=== PATIENT | female | born 1995 | race Caucasian/White ===

== ENCOUNTER 2018-11-11 12:01 | Inpatient (IN) | payer MEDICAID ==
[~2018-11-11] VITALS: Ht 162.6 cm; Wt 66.2 kg
[2018-11-11 12:30] VITALS: BP 114/69; PULSE 80; Ht 162.6 cm; Wt 66.2 kg
[2018-11-11] MEDS ORDERED: PNV11TAB PO (12:31)
[2018-11-11] MEDS ORDERED: LACTATED RINGER'S 1,000 ML IV SCH (12:54)
[2018-11-11] MEDS ORDERED: METHYLERGONOVINE 0.2 MG INJ IM PRN ×2 (13:00→18:00)
[2018-11-11] MEDS ORDERED: LIDOCAINE 1% (MPF) 30 ML INJ INJ PRN (13:00)
[2018-11-11] MEDS ORDERED: BUTORPHANOL 2 MG INJ IV PRN ×2 (13:00)
[2018-11-11] MEDS ORDERED: OXYTOCIN 30 UNITS/LR 500 ML IV PRN ×2 (13:00→18:00)
[2018-11-11] MEDS ORDERED: MISOPROSTOL 200 MCG TAB PR PRN ×2 (13:00→18:00)
[2018-11-11] MEDS ORDERED: CARBOPROST 250 MCG INJ IM PRN ×2 (13:00→18:00)
[2018-11-11] MEDS ORDERED: OXYTOCIN 30 UNITS/LR 500 ML IV SCH ×4 (13:00→17:56)
--- NOTE | 2018-11-11 15:35 | LDN ---
Date/Time of Note Date/Time of Note DATE: 11/11/18 TIME: 15:35 Delivery Summary Placenta Delivered: Spontaneously Meconium: none Episiotomy: No Anesthesia type: None Estimated blood loss: 300 Sponge & Needle done & correct: Yes All needle counts correct: Yes Any foreign bodies felt in the: No JILLIAN BAIG MD Nov 11, 2018 15:35
--- NOTE | 2018-11-11 15:35 | HP ---
Date/Time of Note Date/Time of Note DATE: 11/11/18 TIME: 15:34 OB - History Hx of Present Free Text/Dictation term preg in active labor : 2 Para: 1 Care: Good Care Ultrasounds: Normal mid trimester US Obstetrical Complications: None Medical Complications: None Past Family/Social History * Past Medical, Surgical, Family and Obstetric Histories reviewed from chart. OB Admission Exam Vital Signs Vital Signs Vital Signs Date Temp Pulse Resp B/P (MAP) Pulse Ox O2 O2 Flow FiO2 Time Delivery Rate 11/11/18 98.4 80 114/69 12:30 (84) Physical Exam HEENT: WNL Heart: Rhythm Normal Lungs: Clear, Equal Abdomen: WNL Extremities: Normal Reflexes: Normal Cervical Dilatation: 10cm Effacement: 100% Station: +2 Membranes: Ruptured Amniotic Fluid: Clear Heart Rate: 130's Accelerations: Accelerations Present Decelerations: No Decelerations Varibility: Moderate Contractions on Admission: 6-10 Minutes Apart Intensity: Moderate Last 72 hours Lab Results CBC & BMP 11/11/18 13:43 OB Assessment/Plan Reason for admission: active labor Plan: Expectant Management JILLIAN BAIG MD Nov 11, 2018 15:34
[2018-11-11] MEDS ORDERED: LACTATED RINGER'S 1,000 ML IV* SCH (17:56)
[2018-11-11] MEDS ORDERED: LANOLIN HPA 1 PKT TOP PRN (18:00)
[2018-11-11] MEDS ORDERED: ACETAMINOPHEN 325 MG TAB PO PRN (18:00)
[2018-11-11] MEDS ORDERED: SENNA/DOCUSATE NA (8.6MG/50MG) TAB PO PRN (18:00)
[2018-11-11] MEDS ORDERED: ZOLPIDEM 5 MG TAB PO PRN (18:00)
[2018-11-11] MEDS ORDERED: DIPHENHYDRAMINE 25 MG CAP PO PRN (18:00)
[2018-11-11] MEDS ORDERED: WITCH HAZEL/GLYCERIN PAD PR PRN (18:00)
[2018-11-11] MEDS ORDERED: HYDROCODONE/APAP (5/325) TAB PO PRN (18:00)
[2018-11-11] MEDS ORDERED: MAGNESIUM HYDROXIDE 30ML CUP PO PRN (18:00)
[2018-11-11] MEDS ORDERED: BENZOCAINE 20% 56 ML SPRAY TOP PRN (18:00)
[2018-11-11 18:10] VITALS: BP 112/75; PULSE 78; RESP 18
[2018-11-11] MEDS: IBUPROFEN 800 MG TAB PO SCH (18:38)
[2018-11-11 20:30] VITALS: BP 114/59; PULSE 64; RESP 18
[2018-11-12] MEDS: IBUPROFEN 800 MG TAB PO SCH ×5 (00:32→23:38)
[2018-11-12 03:05] VITALS: BP 101/54; PULSE 53; RESP 17
--- NOTE | 2018-11-12 06:28 | DS ---
Date/Time of Note Date/Time of Note DATE: 11/12/18 TIME: 06:27 Discharge Summary Admission/Discharge Info Admit Date/Time Nov 11, 2018 at 13:00 Discharge Date/Time Discharge Diagnosis term Patient Condition: Stable Hospital Course unremarkable Home Meds Reported Medications [id number] ( 19) 1 Each Tablet, 1 TAB PO DAILY, TAB 11/11/18 Primary Care Provider Care Physician No Primary Pending Labs Laboratory Tests Test 11/11/18 13:43 11/12/18 06:20 White Blood Count 9.3 10^3/ul (4.8-10.8) Red Blood Count 3.64 10^6/ul (4.20-5.40) Hemoglobin 10.7 g/dl (12.0-16.0) Hematocrit 31.3 % (37.0-47.0) Mean Corpuscular Volume 86.0 fl (82.0-101.0) Mean Corpuscular Hemoglobin 29.4 pg (29.0-33.0) Mean Corpuscular 34.2 g/dl (32.0-37.0) Hemoglobin Concent Red Cell Distribution Width 13.3 % (11.5-14.5) Platelet Count 129 10^3/UL (140-415) Mean Platelet Volume 12.8 fl (7.4-10.4) Immature Granulocytes % 0.300 % (0.001-0.429) Neutrophils % 82.6 % (39.0-77.0) Lymphocytes % 11.3 % (15.0-51.0) Monocytes % 5.6 % (0.0-11.0) Eosinophils % 0.1 % (0.0-7.0) Basophils % 0.1 % (0.0-2.0) Nucleated Red Blood Cells % 0.0 /100WBC (0.0-0.0) Immature Granulocytes # 0.030 10^3/ul (0.0-0.031) Neutrophils # 7.7 10^3/ul (1.6-7.5) Lymphocytes # 1.1 10^3/ul (0.8-2.9) Monocytes # 0.5 10^3/ul (0.3-0.9) Eosinophils # 0.0 10^3/ul (0.0-0.5) Basophils # 0.0 10^3/ul (0.0-0.1) Nucleated Red Blood Cells # 0.0 10^3/ul (0.0-0.0) Prothrombin Time 12.6 Sec (11.9-14.9) Prothrombin Time Ratio 1.0 INR International 0.93 Normalized Ratio Activated Partial Thromboplast 26.0 Sec (23.0-35.0) Time Rapid Plasma Reagin NONREACTIVE (NR) Lab Scanned Report [facility] [id number] JILLIAN BAIG MD Nov 12, 2018 06:28
[2018-11-12 08:30] VITALS: BP 103/58; PULSE 60; RESP 18
[2018-11-12 17:04] VITALS: BP 100/61; PULSE 63; RESP 18
[2018-11-12 19:45] VITALS: BP 112/70; PULSE 71; RESP 18
--- NOTE | 2018-11-12 23:13 | PN ---
Date/Time of Note Date/Time of Note DATE: 11/12/18 TIME: 23:12 OB Subjective Subjective Subjective PPD# 1 Patient is doing well. She denies nausea, vomiting, shortness of breath, chest pain, headache. She has been ambulating without difficulty, tolerating regular diet. Pain is well controlled on current medications OB Objective Objective Objective General: AAO X 3, comfortable, NAD, appropriate mood and affect. ABD: +BS. Soft, non-tender. Uterus 2 cm below umbilicus Flank: No CVA tenderness (B/L) LE: Mild edema. No clubbing, cyanosis, thigh or calf tenderness (B/L). Homans 'sign is negative OB Assessment/Plan Other plan: 23 years old 2 para 2-0-0-2 s/p normal vaginal delivery. PPD#1 - AF, VSS - Baby is doing well, at bed side. She is bonding well - Discharge home tomorrow - Rx and instruction given - Follow up in 2 and 6 weeks at clinic SHAYNA TONG Nov 12, 2018 23:13
[2018-11-13 03:50] VITALS: BP 114/59; PULSE 58; RESP 19
[2018-11-13] MEDS: IBUPROFEN 800 MG TAB PO SCH ×2 (05:34→12:00)
[2018-11-13 08:30] VITALS: BP 115/71; PULSE 66; RESP 18
[2018-11-13] MEDS ORDERED: MEASLES,MUMPS,RUBELLA VACCINE INJ SC* ONE (09:00)
[2018-11-13] MEDS ORDERED: VARICELLA VACCINE LIVE/PF 1,350 UNIT/0.5 ML ML SC* ONE (09:00)
[2018-11-13] MEDS ORDERED: DIPHTH/TET/ACEL PERTUSS (ADULT) 0.5 ML VIAL IM* ONE (09:00)
--- NOTE | 2018-11-14 13:47 | DELSUM ---
Delivery Summary A-C Datetime Report Generated by CPN: 11/14/2018 13:47 DELIVERY PERSONNEL Space Technologist: Mao, Alesha MATERNAL INFORMATION Delivery Anesthesia: None Medications in Delivery: Oxytocin 30 units Delivery QBL (ml): 306 Placenta Cultured: No Maternal Complications: None LABOR SUMMARY EDC: 11/17/2018 00:00 No. Babies in Womb: 1 Attempted: No Labor Anesthesia: None LABOR INFORMATION Reason for Induction: Not Applicable Onset of Labor: 11/11/2018 12:25 Complete Dilatation: 11/11/2018 15:30 Oxytocin: Augmentation Group B Beta Strep: Negative Antibiotics # of Doses: 0 Steroids Given: None Reason Steroids Not Administered: Not Applicable MEMBRANES Membranes Rupture Method: Artificial Rupture of Membranes: 11/11/2018 15:30 Length of Rupture (hr): 0.15 Amniotic Fluid Color: Clear Amniotic Fluid Amount: Moderate Amniotic Fluid Odor: None STAGES OF LABOR Stage 1 hr: 3 Stage 1 min: 5 Stage 2 hr: 0 Stage 2 min: 9 Stage 3 hr: 0 Stage 3 min: 2 Total Time in Labor hr: 3 Total Time in Labor min: 16 VAGINAL DELIVERY Episiotomy: None Laceration Extension: N/A Laceration Type: None Laceration Repair: Not Applicable Initial Vag Sponge Count: 10 Final Vag Sponge Count: 10 Initial Vag Sharps Count: 1 Final Vag Sharps Count: 1 Sponge Count Correct: Yes; Vaginal Sweep Performed Sharps Count Correct: Yes BABY A INFORMATION Delivery Date/Time: 11/11/2018 15:39 Method of Delivery: Vaginal Born in Route : No : N/A Forceps: N/A Vacuum Extraction: N/A Shoulder Dystocia : No SHOULDER DYSTOCIA BABY A Delivery Date/Time: 11/11/2018 15:39 PRESENTATION/POSITION BABY A Presentation: Cephalic Cephalic Presentation: Vertex Vertex Position: Left Occipital Anterior Breech Presentation: N/A PLACENTA INFORMATION BABY A Placenta Delivery Time : 11/11/2018 15:41 Placenta Method of Delivery: Spontaneous Placenta Status: Delivered SCORES BABY A Heart Rate 1 min: >100 bpm Resp Effort 1 min: Good Cry Reflex Irritability 1 min: Cough/Sneeze/Pulls Away Muscle Tone 1 min: Active Motion Color 1 min: Body [place], Extremit Blue Resuscitation Effort 1 min: Tactile Stimulation SCORE 1 MIN: 9 Heart Rate 5 min: >100 bpm Resp Effort 5 min: Good Cry Reflex Irritability 5 min: Cough/Sneeze/Pulls Away Muscle Tone 5 min: Active Motion Color 5 min: Body [place], Extremit Blue Resuscitation Effort 5 min: Tactile Stimulation SCORE 5 MIN: 9 INFORMATION BABY A Gestational Age at Delivery: 39.1 Gestational Status: Full Term- 39- 40.6 Weeks Outcome : Liveborn Condition : Stable Infant Sex: Male IDENTIFICATION/MEDS BABY A ID Band Number: [id number] ID Band Location: Right Leg; Left Arm Sensor Applied: Yes Sensor Number: [id number] Sensor Location : Cord Clamp Vitamin K Given : Not Given Erythromycin Given: Not Given WEIGHT/LENGTH BABY A Birthweight (gm): 3155 Infant Weight (lb): 6 Infant Weight (oz): 15 Length (in): 20.00 Length (cm): 50.80 CORD INFORMATION BABY A No. Cord Vessels: 3 Nuchal Cord : N/A Cord Blood Taken: Yes Suction: Mouth; Nose ASSESSMENT BABY A Infant Complications: None Physical Findings at Delivery: Within Normal Limits Infant Respirations: Appears Normal Patent Attorney/ALS Called : No Care By: [place] Kidd RN Transferred To: Remains with Mother
== END 2018-11-13 13:25 | disposition home or self-care (01) | DRG 807 ==
LOC: OBT 12:01 → L-D 12:01 → OBT 13:00 → L-D 15:35 → PP1 17:48
PROVIDERS: ADMIT Obstetrics & Gynecology; ATTEND Obstetrics & Gynecology
PROC: 10E0XZZ Delivery of Products of Conception, External Approach (ICD-10-PCS; principal; 2018-11-11)
DX: O80 Encounter for full-term uncomplicated delivery (principal); Z37.0 Single live birth; Z3A.39 39 weeks gestation of pregnancy; Z23 Encounter for immunization
CPT/HCPCS: 85025; 85610; 85730; 86592; 86850; 86900; 86901; 90715; 90716; G0463; J2590; J7120